=== PATIENT | male | born 1940 | race Caucasian/White ===

== ENCOUNTER → 2018-05-12 | Outpatient (CLI) | payer MEDICARE ==
--- NOTE | 2018-05-12 15:14 | KCIC ---
EXAM: Right upper extremity sonogram. HISTORY: Right elbow mass. TECHNIQUE: Sonographic imaging of the right elbow at the site of palpable concern was performed. COMPARISON: None. FINDINGS: There is a circumscribed solid nonvascular lesion isoechoic to fat within the lateral right elbow soft tissues at the site of palpable concern, measuring 5.1 x 1.1 x 3.2 cm. IMPRESSION: 5.1 cm solid within the lateral right elbow soft tissues at the site of palpable concern, the sonographic appearance of which favors a lipoma. Continued clinical follow-up of palpable abnormalities is recommended. Follow-up sonography or MRI can be considered if there is a change in physical exam findings or clinical concern. Electronically signed by: Maria De Jesus Denney MD (05/12/2018 3:11 PM) [place] [id number]
== END | disposition home or self-care (01) ==
LOC: KCIC US 14:29
PROVIDERS: ATTEND Family Medicine
DX: R22.31 Localized swelling, mass and lump, right upper limb (principal)
CPT/HCPCS: 76881

== ENCOUNTER → 2020-02-05 | Outpatient (CLI) | payer MEDICARE ==
--- NOTE | 2020-02-05 15:45 | KCIC ---
EXAM: XR SHOULDER_LEFT 2+ VIEWS 02/05/2020 1:25 PM CLINICAL INDICATION: Left shoulder pain for 2 weeks, no known injury COMPARISON: None available TECHNIQUE: 3 views of the left shoulder FINDINGS: No acute fracture. Alignment is normal. The glenohumeral joint is maintained. There is mil d acromioclavicular degenerative joint disease. Subacromial space is preserved. No soft tissue calcif ications. IMPRESSION: No acute osseous abnormality. Mild acromioclavicular degenerative joint disease. Electronically signed by: Zulay Borrego MD (02/05/2020 3:42 PM) [id number]
== END ==
LOC: KCIC 13:11
PROVIDERS: ATTEND Physician Assistant
DX: M19.012 Primary osteoarthritis, left shoulder (principal)
CPT/HCPCS: 73030